=== PATIENT | male | born 1950 | race Caucasian/White ===

== ENCOUNTER 2016-10-01 07:31 | Day surgery (SDC) | payer MEDICARE ==
--- NOTE | 2016-09-30 09:39 | HP ---
CC: Dr. Pavon* HISTORY AND PHYSICAL: DATE OF PLANNED ADMISSION AND SURGERY: 10/01/16 HISTORY OF PRESENT ILLNESS: Mr. Corrales is a 66-year-old white male who is admitted with a left ureteral calculus for cystoscopy, left ureteroscopy, laser lithotripsy and left ureteral stent placement. Mr. Corrales has past history of uric acid nephrolithiasis and had been maintained on allopurinol 300 mg daily. He had been doing well until 3 days ago when he started having recurrent episodes of gross painless hematuria. The episodes were totally asymptomatic, not associated with any urgency, frequency, burning on urination or any flank pain. The patient was evaluated in the office and his urinalysis showed microscopic hematuria. He then had a cystoscopy, which was negative showing no ureteral or bladder pathology. Renal ultrasound showed a 1 cm non-obstructing calculus in the lower pole calyx of the left kidney and an 8 mm calculus in the distal left ureter just proximal to the ureterovesical junction. The patient then had a KUB, which showed no abnormal calcifications in the left kidney or left ureter suggestive that the renal calculi seen on the ultrasound are radiolucent and most likely uric acid in composition. Because of the above history and findings and the size of the ureteral calculus , the patient is admitted for the above procedure. Past history is relevant for bladder outlet obstruction and history of prostatitis and hemospermia. He is on no medications. He denies any voiding symptoms. He feels good bladder emptying. He had a PSA of 0.3 four months ago. PAST MEDICAL HISTORY AND SYSTEM REVIEW: He has hypertension for which he is maintained on metoprolol and HCTZ. He has hyperlipidemia, on Crestor. He is on one baby aspirin per day. He is hypothyroid, on thyroid replacement. He denies any chest pain, shortness of breath or difficulty breathing. ALLERGIES: He denies any allergies to medications. PHYSICAL EXAMINATION GENERAL: Pleasant and healthy looking white male. VITAL SIGNS: Blood pressure 140/80. LUNGS: Lungs are clear. HEART: Regular and rhythmic, no murmurs. ABDOMEN: Soft, no masses, no tenderness and no CVA tenderness. GENITALIA: External genitalia are normal. IMPRESSION: Recurrent episodes of gross painless hematuria with a 1 cm nonobstructing and radiolucent calculus in the lower pole calyx of the left kidney and then 8 mm radiolucent calculus in the distal left ureter associated with mild left hydronephrosis. PLAN: Plan is for cystoscopy, left ureteroscopy, laser lithotripsy and left ureteral stent placement. I discussed the above plans with the patient. He is supposed to strain his urine and to report if the stone has passed or if has any acute colics. [id number] #: [id number] MTDD
[~2016-10-01 07:31] MED LIST: Buffered Lidocaine 0.9% SYRIN* 5 ML/SYR SYRINGE INTRADERM ONE; Buffered Lidocaine 0.9% SYRIN* 5 ML/SYR SYRINGE ONE; Sodium Citrate/Citric Acid* 15 ML UDC ONE; Sodium Citrate/Citric Acid* 15 ML UDC PO ONE; cefTRIAXone(*) 2 GM ADDV.VIAL IVPB ONE
[2016-10-01] MEDS ORDERED: fentaNYL* 50 MCG/ML 2 ML VIAL (100 MCG VIAL) ONE (09:23)
[2016-10-01] MEDS ORDERED: Propofol* 10 MG/ML 20 ML BTL IV PUSH ONE (09:32)
[2016-10-01] MEDS ORDERED: Lidocaine 2% PF * 5 ML VIAL ONE (09:32)
[2016-10-01] MEDS ORDERED: Iohexol 180 (CONTRAST) 10 ML SDV IV ONE (10:30)
--- NOTE | 2016-10-01 11:15 | RAD ---
INDICATION: Cystoscopy, ureteroscopy and left stent placement. COMPARISON: Comparison is made with a prior KUB from September 29, 2016. TECHNIQUE: 5 seconds of intermittent fluoroscopic guidance were provided and 5 spot films of the abdomen were centered on the left side. FINDINGS: There is partial opacification of the left renal collecting system. Subsequently there is placement of a double-J stent catheter on the left side which demonstrates normal course. IMPRESSION: INTRAOPERATIVE CONTROL FILMS. CPT II Codes: 6045F
[2016-10-01 11:42] VITALS: BP 135/74
--- NOTE | 2016-10-02 04:43 | OP ---
CC: Dr. Pavon * DATE OF OPERATION: 10/01/16 - [facility] DATE OF : 48 SURGEON: Dr. Arana. ANESTHESIOLOGIST: Dr. Jose Daniel Dorsey ANESTHESIA: General. PRE-OP DIAGNOSES: 1. Distal left ureteral calculus (8 mm). 2. Recurrent episodes of gross hematuria due to above. POST-OP DIAGNOSES: 1. Distal left ureteral calculus (8 mm). 2. Recurrent episodes of gross hematuria due to above. OPERATIVE PROCEDURE: 1. Cystoscopy. 2. Left ureteroscopy and extraction of left ureteral calculus. 3. Left retrograde pyelography and placement of left ureteral stent (6-Vietnamese). INDICATION FOR PROCEDURE: Mr. Corrales is a 66-year-old white male, who presented to the office 2 days ago with recurrent episodes of gross painless hematuria. Renal ultrasound showed a 1 cm calculus in the lower pole calyx of the left kidney and full bladder ultrasound showed an 8 mm minimally obstructing calculus in the distal left ureter just proximal to the ureterovesical junction. Cystoscopy showed no bladder tumors or lesions. Because of the above history and finding and the size of the stone, the patient was admitted for the above procedure. PATHOLOGY: At cystoscopy, the penile and bulbar urethrae looked normal. The prostatic urethra measured about 2.5 cm in length and there was moderate obstruction by prostate enlargement. Examination of the bladder showed no suspicious bladder lesions. There were no calculi or diverticula noted. There ureteral orifices looked normal. Upon left ureteroscopy, an 8 mm calculus that had a grayish appearance with irregular contour was impacted in the distal ureter just proximal to the ureterovesical junction. The stone was rather friable and broke easily with the basket. No calculi were noted in the proximal ureter. Let retrograde pyelography showed no hydronephrosis. DESCRIPTION OF PROCEDURE: After successful general anesthesia, the patient was placed in the lithotomy position and was prepped and draped for cystoscopy. Cystoscopy was performed. The bladder was carefully inspected and the above findings noted. A flexible-tip guidewire was then introduced into the left orifice and positioned in the area of the renal pelvis. A size 6.5 semi-rigid tapered ureteroscope was then introduced inside the bladder. A flexible-tipped basket was then introduced through the port of the ureteroscope and it is flexible tip was introduced into the left orifice and was used as a guide to safely pass the ureteroscope into the left ureter. The calculus was identified. It was disimpacted with the scope. It was then engaged with the basket. While closing the basket, the stone broke into several fragments. All the fragments were then extracted. Ureteroscopy was then repeated going into the proximal ureter and no other calculi were seen. The ureteroscope was then removed and the cystoscope was introduced over the guidewire. Retrograde pyelography was performed. A size 6-Vietnamese stent was then placed with the proximal end coiling in the renal pelvis and the distal end coiling inside the bladder. There was good drainage of contrast from the kidney and no extravasation. The patient tolerated the procedure well and left the operating room in good condition. The plan is to leave the stent in place for a week, it will be removed in the office under local anesthesia. [id number]/CPS #: [id number] MTDD
== END 2016-10-01 12:39 | disposition home or self-care (01) ==
LOC: OR 07:31
PROVIDERS: ATTEND Urology
DX: N20.1 Calculus of ureter (principal); R31.0 Gross hematuria; I10 Essential (primary) hypertension; E78.5 Hyperlipidemia, unspecified; E03.9 Hypothyroidism, unspecified; Z79.82 Long term (current) use of aspirin
CPT/HCPCS: 74420; 82365; 88300; A9270-GY; C1876; J0696; J2704; J3010